=== PATIENT | female | born 1930 | race Caucasian/White ===

== ENCOUNTER 2016-09-30 18:05 | Emergency (ER) | payer OTHER ==
[~2016-09-30] VITALS: Ht 147.3 cm; Wt 40.8 kg
--- NOTE | ~2016-09-30 | EKG ---
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 10/01/16 0818 191 18 Aguilar Petersen MD, FACC /EPI
[~2016-09-30 18:05] MED LIST: ASPIR 8181 M1 PO; NOHOMEMEDICATIONS; PENICILLIN V P500 MG PO; TOPROL XL25 MG PO; TRINATE TABLET1 TAB PO; VITAMIN B-1100 M1 PO
[2016-09-30 19:42] LABS: ANION GAP 11 mmol/L (7-16); BUN 25 mg/dL (7-18); CALCIUM 8.9 mg/dL (8.5-10.1); CHLORIDE 103 mmol/L (98-107); CO2 26 mmol/L (21-32); CREATININE 0.7 mg/dL (0.6-1.3); GLUCOSE 91 mg/dL (70-99); POTASSIUM 3.6 mmol/L (3.5-5.1); SODIUM 140 mmol/L (136-145)
[2016-09-30 19:45] LABS: ABSOLUTE NEUTROPHILS 2.7 thou/uL (1.4-8.2); BASOPHILS 0.5 % (0.0-2.0); EOSINOPHILS 0.3 % (0.0-3.0); HEMATOCRIT 41.6 % (37.0-47.0); HEMOGLOBIN 13.7 gm/dL (12.0-15.0); LYMPHOCYTES 18.2 % (24.0-44.0); MCH 30.9 pg (26.0-34.0); MCHC 32.8 % (28.0-37.0); MCV 94.2 fL (80.0-100.0); MONOCYTES 6.5 % (1.0-8.0); PLATELET COUNT 206 thou/uL (150-400); POLYS 74.5 % (36.0-66.0); RBC 4.42 mil/uL (4.20-5.00); RDW 13.9 % (10.5-14.5); WBC 3.6 thou/uL (4.0-11.0)
[2016-09-30 19:47] LABS: MANUAL DIFF NO
[2016-09-30 19:51] LABS: ALBUMIN 3.7 g/dL (3.4-5.0); ALKALINE PHOSPHATASE 78 U/L (46-116); SGOT 43 U/L (15-37); SGPT 26 U/L (30-65); TOTAL BILIRUBIN 0.7 mg/dL (<0.1-1.0); TOTAL PROTEIN 7.7 g/dL (6.4-8.2); TROPONIN-I < 0.04 ng/mL (<0.04-0.07)
[2016-09-30 21:17] LABS: URINE BILIRUBIN NEGATIVE (Negative); URINE BLOOD TRACE (Negative); URINE COLOR YELLOW; URINE GLUCOSE-RANDOM* NEGATIVE (Negative); URINE KETONES 1+ (Negative); URINE LEUKOCYTES-REFLEX NEGATIVE (Negative); URINE PROTEIN (DIPSTICK) NEGATIVE (Negative); URINE UROBILINOGEN 0.2 E.U./dl (0.2-1.0)
== END 2016-09-30 21:34 | disposition home or self-care (01) ==
LOC: ER 18:05
PROVIDERS: Emergency Medicine
DX: R41.82 Altered mental status, unspecified (principal); N63 Unspecified lump in breast; F03.90 Unspecified dementia, unspecified severity, without behavioral disturbance, psychotic disturbance, mood disturbance, and anxiety; R41.0 Disorientation, unspecified; F10.99 Alcohol use, unspecified with unspecified alcohol-induced disorder

== ENCOUNTER 2017-02-01 15:57 | Inpatient (IN) | payer OTHER ==
[~2017-02-01] VITALS: Ht 149.9 cm; Wt 34.8 kg
--- NOTE | ~2017-02-01 | HC ---
[facility] [address] CONSULTATION Name: ANTONIO SPARKS Room #: 216-P ADM IN M.R.#: [id number] Admission: 02/01/17 Attend Phys: Aashish Cm MD Discharge: Date of : 30 Report #: [id number] THIS REPORT FOR: //name// CC: [facility] physician/PCP Aashish Cm DATE OF CONSULTATION: 02/02/2017. ATTENDING PHYSICIAN: Dr. Cm. REASON FOR CONSULTATION: Pneumonia. Antibiotic management. HISTORY OF PRESENT ILLNESS: The patient is an 86-year-old [place] woman apparently found by friends, unable to care for herself. She is brought to the Emergency Room where a CT scan of the chest revealed, bilateral pleural effusion and possible pneumonia. She is started on Zosyn. The patient apparently has a diagnosis of dementia, chronic tremors. She is very pleasant person but her ability to provide significant medical information is rather limited. PAST MEDICAL HISTORY: Reviewing old records from 2013, a note is made patient is a diagnosis of previous tuberculosis in 1959. History of head tremors. Has use on alcohol to help with the tremors. DRUG ALLERGIES: None listed. MEDICATIONS: She is on treatment with Zosyn 2.25 grams IV every 6 hours, albuterol inhalation treatments, p.r.n. acetaminophen, p.r.n. ondansetron, furosemide intravenously x 1. SOCIAL HISTORY: See old records and H and P. FAMILY HISTORY: See old records and H and P. REVIEW OF SYSTEMS: Unable to obtain. PHYSICAL EXAMINATION: GENERAL: Chronically, she ill-appearing woman with significant head tremors is very pleasant, but not able to give significant medical information. VITAL SIGNS: Temperature 98, pulse 105-133 a minute, respirations 20, blood pressure 155/97 and O2 saturation 98% on 4 liters oxygen nasal cannula. HEENMT: Head normocephalic, atraumatic. Pupils reactive, arcus cornealis. Mouth: Dry mucous membrane. NECK: Supple. LUNGS: Bibasilar crackles posteriorly. HEART: S1, S2. No gallop or murmur. BREASTS: Deferred. ABDOMEN: Soft, no masses or megaly. [facility] [address] [place] [address] CONSULTATION Name: ANTONIO SPARKS Room #: 216-P [facility] IN M.R.#: [id number] Admission: 02/01/17 Attend Phys: Aashish Cm MD Discharge: Date of : 30 Report #: [id number] PELVIC AND RECTAL: Deferred. EXTREMITIES: No clubbing, cyanosis. NEUROLOGIC: Grossly within normal limits. With that she has significant head tremors and been present previously. LABORATORY DATA: Sodium 141, potassium 3.8, BUN 17, creatinine 1, glucose 189. SGOT 43, lipase 70, albumin 3.3 g/dL. WBC 9300, hemoglobin 12.3 g/dL, platelets 200,000. The urinalysis revealed 1+ protein, 1+ blood. The microscopic exam essentially negative. MICROBIOLOGY DATA: Urine culture and blood cultures were order as well as sputum culture and all of toes are pending. RADIOLOGY EVALUATION: Breast ultrasound of the right breast [address] scan of abdomen and pelvis revealed large pleural effusion, compressive atelectasis, an infiltrate left lingula, possibly loculated pleural effusion, empyema not be excluding, liver cyst, gallstones in the gallbladder without cholecystitis, atrophic pancreatitis, colonic wall thickening of distal colon, possible colitis, some pericolonic stranding and fibroid the uterus. ASSESSMENT: 1. Bilateral pleural effusions, question loculated empyema -- pneumonia. 2. Colonic wall thickening, rule out colitis. 3. Fibroid. 4. Right breast mass. 5. Dementia. 6. Head tremors. 7. Mild hypoalbuminemia. SUGGESTIONS: I supposed pulmonary services was consulted. If not, I recommend doing so. For the time being, must continue coverage with Zosyn for possible aspiration pneumonia. We will obtain stool for C. difficile toxin. Dr. Cm, thank you for requesting my suggestions in the care of your patient. <ELECTRONICALLY SIGNED> By: Petr Farrar MD 02/03/17 0702 0646 0805 Petr Farrar MD /nt
--- NOTE | ~2017-02-01 | 2DMMODE ---
[facility] [address] [place] [address] 2 D/M-MODE ECHOCARDIOGRAM Name: ANTONIO SPARKS Room #: 216-P [facility] IN ..#: [id number] Admission: 02/01/17 Attend Phys: Divine Calvo Discharge: Date of : 30 Date of Service: 02/02/17 [facility] Report #: [id number] THIS REPORT FOR: //name// APPROVED REPORT Study performed: 02/02/2017 10:27:18 EXAM: Comprehensive 2D, Doppler, and color-flow Echocardiogram Patient Location: In-Patient Room #: 216 Status: on-call Other Information Study Quality: Excellent Indications Congestive Heart Failure 2D Dimensions LVEF(%): 14.68 (>50%) IVSd: 12.62 (7-11mm) LVOT Diam: 19.00 (18-24mm) LVDd: 41.72 mm PWd: 12.09 (7-11mm) Ascending Ao: 21.75 (22-36mm) LVDs: 39.02 (25-40mm) Aortic Root: 24.70 mm Munoz's LVEF: 14.68 % Volumes Left Atrial Volume (Systole) Single Plane 4CH: 33.32 mL Single Plane 2CH: 49.66 mL LA ESV Index: 39.00 mL/m2 Aortic Valve AoV Peak Chong.: 1.26 m/s AO Peak Gr.: 6.76 mmHg LVOT Max P.79 mmHg LVOT Max V: 0.83 m/s ALLI Vmax: 1.74 cm2 AI Vmax: 4.54 m/s AI Emmet: 2.75 m/s2 AI PHT: 485.69 ms Mitral Valve E/A Ratio: 3.6 MV Decel. Time: 114.29 ms MV E Max Chong.: 1.16 m/s [facility] [place] [address] 2 D/M-MODE ECHOCARDIOGRAM Name: ANTONIO SPARKS Room #: 216-P [facility] IN M.R.#: [id number] Admission: 02/01/17 Attend Phys: Divine Calvo Discharge: Date of : 30 Date of Service: 02/02/17 [facility] Report #: [id number] MV A Chong.: 0.32 m/s MV PHT: 33.14 ms Pulmonary Valve PV Peak Chong.: 0.60 m/s PV Peak Gr.: 1.43 mmHg Tricuspid Valve TR Peak Chong.: 3.14 m/s RAP Estimate: 10.00 mmHg TR Peak Gr.: 39.35 mmHg PA Pressure: 32.00 mmHg Left Ventricle The left ventricle is normal size. Global LV dysfunction Mild concentric left ventricular hypertrophy. Left ventricular systolic function is moderately decreased. EF 30-35% Right Ventricle The right ventricle is normal size. The right ventricular systolic function is normal. Atria Left atrium is mildly dilated. The right atrium size is normal. Aortic Valve The aortic valve is trileaflet, mildly calcified. Moderate aortic regurgitation. There is no aortic valvular stenosis. Mitral Valve The mitral valve is normal in structure. Moderate mitral regurgitation. No evidence of mitral valve stenosis. Tricuspid Valve The tricuspid valve is normal in structure. Trace tricuspid regurgitation. Pulmonic Valve The pulmonary valve is normal in structure. There is no pulmonic valvular regurgitation. Great Vessels The aortic root is normal in size. IVC is normal in size and collapses <50% with inspiration. Pericardium Trace pericardial effusion. [facility] [address] [place] [address] 2 D/M-MODE ECHOCARDIOGRAM Name: ANTONIO SPARKS Room #: 216-P ADM IN .R.#: [id number] Admission: 02/01/17 Attend Phys: Divine Calvo Discharge: Date of : 30 Date of Service: 02/02/17 1200 Report #: [id number] <Conclusion> Left ventricular systolic function is moderate to severely decreased. EF 30-35% Both atria are dilated. The aortic valve is trileaflet, mildly calcified. No stenosos, MIld-moderate aortic regurgitation. The mitral valve is normal in structure. Moderate mitral regurgitation. Pulmonary artery pressure of 45mmHg Trace pericardial effusion. Pleural effusion <ELECTRONICALLY SIGNED> By: Aguilar Petersen MD, FAC 02/02/17 1200 1200 99 Aguilar Petersen MD, [facility] /INF
--- NOTE | ~2017-02-01 | HC ---
[facility] [place] [address] CONSULTATION Name: ANTONIO SPARKS Room #: 216-P [facility] IN M.R.#: [id number] Admission: 02/01/17 Attend Phys: Aashish Cm MD Discharge: Date of : 30 Report #: [id number] THIS REPORT FOR: //name// CC: [facility] physician/PCP Aashish Cm DATE OF SERVICE: 02/02/2017 PRIMARY CARE PHYSICIAN: Unknown. REFERRING PHYSICIAN: Dr. Cm. REASON FOR REFERRAL: Pneumonia. HISTORY OF PRESENT ILLNESS: The patient is an 86-year-old female who was admitted with pneumonia. A pulmonary consultation was requested. The patient is a poor historian. There are no family members available. According to the ER record, the patient was brought to the Emergency Room by a friend who found the patient with trouble with vomiting and nausea for the past 2-3 days. The patient reportedly had been able to eat prior to that. Currently, she does not appear in distress. She denies any dyspnea or chest pain, though again the patient is a poor historian. There is a questionable history of dementia. I am not able to locate portable chest x-ray. PAST MEDICAL HISTORY: Remarkable for dementia, tremors, otherwise incomplete. ALLERGIES: None to medications. HOME MEDICATIONS: Unknown. FAMILY HISTORY AND SOCIAL HISTORY: Unknown. REVIEW OF SYSTEMS: As mentioned above is quite limited due to presumed dementia. PHYSICAL EXAMINATION: GENERAL: She is awake, does not appear to be in distress. VITAL SIGNS: Temperature is 98.9 degrees Fahrenheit, pulse is 94, respiratory rate is 16, blood pressure 131/73 mmHg, saturation 98%. HEENT: Normocephalic, atraumatic. NECK: Supple, without any lymphadenopathy or thyromegaly. CHEST: Breath sounds are fair due to poor effort. No obvious wheezes or [facility] [address] [place] [address] CONSULTATION Name: ANTONIO SPARKS Room #: 216-P [facility] IN [facility].#: [id number] Admission: 02/01/17 Attend Phys: Aashish Cm MD Discharge: Date of : 30 Report #: [id number] crackles. CARDIOVASCULAR: Normal S1, S2. No murmurs or gallop. There is no JVD. There is no carotid bruit. Pulses are 2+/4+ bilaterally. ABDOMEN: Soft, nontender, no organomegaly or masses felt. GENITOURINARY: Deferred. RECTAL: Deferred. EXTREMITIES: There is no edema, cyanosis or clubbing. LABORATORY DATA: CT of the abdomen and pelvis shows moderate bilateral pleural effusion, bibasilar infiltrates involving the lingula. Pleural effusion has some suggestion of loculation, diffuse colonic wall thickening suggestive of colitis. Lactic acid is 2.9. BNP is 15,600. Echocardiogram showed ejection fraction of 30-35%, left ventricular systolic functions felt to be moderate to severely decreased. Pulmonary artery pressure measured 45 mmHg. Electrolytes unremarkable. Liver function test is mildly abnormal, WBC 8000, hemoglobin is 12.4 without evidence of bandemia. Albumin 3.4. IMPRESSION: 1. Apparent nausea and vomiting in this 86-year-old female. CT abdomen and pelvis suggest colonic wall thickening suggestive of possible colitis. 2. Bilateral pleural effusion, some of this appears to be loculated, chronic with minimal infiltrates. Pneumonia is felt to be less likely, though possible. 3. Cardiomyopathy with reduced ejection fraction. 4. Right breast mass. 5. Dementia. RECOMMENDATION AND DISCUSSION: In terms of the pleural fluid, we will proceed with a formal CT chest for complete evaluation. If the patient indeed does have loculated pleural effusion, given advanced age and dementia, I would strongly recommend conservative management. I do not think she will be a good surgical candidate. I think it is reasonable to continue antibiotics to treat for presumed pneumonia. Given her recent nausea and vomiting, will need to consider aspiration pneumonia. You will be helpful to obtain all records if possible and to contact family members if available. Thank you for the consultation. <ELECTRONICALLY SIGNED> By: Sven Infante MD 02/03/17 1632 1554 Sven Infante MD /nt
--- NOTE | ~2017-02-01 | EKG ---
[address] [place] [address] ELECTROCARDIOGRAM REPORT Name: ANTONIO SPARKS Room #: 216-P ADM IN M.R.#: [id number] Admission: 02/01/17 Attend Phys: Aashish Cm MD Discharge: Date of : 30 Report #: [id number] THIS REPORT FOR: //name// [facility] Test Date: 2017-02-03 Test Time: 07:14:25 Pat Name: ANTONIO SPARKS Department: Room: 216 P Gender: F Wheat Buyer: ADRIAN : 1930 Requested By: Jorge Gan Order Number: [id number] MD: Aguilar Petersen Measurements Intervals [place] Rate: 71 P: 79 MT: 190 QRS: -92 QRSD: 120 T: 255 QT: 471 QTc: 512 Interpretive Statements Sinus rhythm Atrial premature complex Probable anterior infarct, age indeterminate Compared to ECG 09/30/2016 19:19:04 Atrial premature complex(es) now present Right bundle branch block no longer present Electronically Signed On 02-03-2017 14:07:44 CDT by Aguilar Petersen [email or web address] <ELECTRONICALLY SIGNED> By: Aguilar Petersen MD, [facility] 02/03/17 1407 0714 0714 Aguilar Petersen MD, [facility] /EPI
--- NOTE | ~2017-02-01 | CNG ---
[facility] [address] CYTO-NONGYN REPORT PROCEDURE Name: ANTONIO WARD Room #: 216-P ADM IN M.R.#: [id number] Admission: 02/01/17 Date of : 30 Discharge: Report #: [id number] Path Case #: [id number] CYTOPATHOLOGY REPORT COLLECTION DATE: 02/05/2017 RECEIVED DATE: 02/05/2017 SUBMITTING PHYS: Dr. Toi Zendejas OTHER PHYS: CLINICAL HISTORY: Pneumonia/Sepsis/SOB SPECIMEN(S) RECEIVED: A.Pleural fluid * * * * * * * * * * * * FINAL DIAGNOSIS: A. Pleural fluid: - No malignant cells identified. Scattered reactive mesothelial cells and inflammation identified. PATHOLOGIST: Mina Wright M.D. REPORT ELECTRONICALLY SIGNED BY: Mina Wright M.D. DATE/TIME: 02/06/2017 11:21 * * * * * * * * * * * * GROSS PATHOLOGY: A. Pleural fluid: The specimen is submitted unfixed, labeled "Antonio Ward". Received by the Cytology Department is 15 mL of yellow fluid. One ThinPrep slide and a cell block were prepared. (KG 02/05/17) DYE MACHINE TENDER(S): BEATRIZ Campbell(ASCP) INITIAL CPT CODE(S): A; 11861, 95878 [facility] [address] [facility] [address] [place] [address] Technical services performed by [facility] at [address] [place] [address]., [address], [place] [address]. [facility] [address] [place] [address], [address] [place] [address] PHONE: [phone] [facility] [address] [place] [address] CYTO-NONGYN REPORT PROCEDURE Name: ANTONIO WARD Room #: 216-P ADM IN M.R.#: [id number] Admission: 02/01/17 Date of : 30 Discharge: Report #: [id number] Path Case #: [id number] DIRECTOR: Alexis Weiss M.D. * * * END OF REPORT * * *
--- NOTE | ~2017-02-01 | HC ---
[facility] [place] [address] CONSULTATION Name: ANTONIO SPARKS Room #: 216-P [facility] IN M.R.#: [id number] Admission: 02/01/17 Attend Phys: Aashish Cm MD Discharge: 02/06/17 Date of : 30 Report #: [id number] THIS REPORT FOR: //name// CC: [facility] physician/PCP Aashish Cm CARDIOLOGY CONSULT HISTORY OF PRESENT ILLNESS: The patient 86-year-old female, very small. I am asked to see for the potential of heart failure exacerbation, looks like she was admitted with possible sepsis syndrome, although that apparently was ruled out, but although found to have what we believe to be infiltrate and atelectasis in the lower lobes, in the right middle lobe region, some loculated pleural fluid also was noted on the CAT scan. Treated with IV antibiotics and appears to be in sinus tachycardia which may be an appropriate physiologic response here. I do not have an EKG, but I will certainly obtain one. She denies cardiac history. I believe there is some language issue and also a mild underlying dementia here, so difficult to get a reliable history. LABORATORY DATA: Potassium 4.3, creatinine 2.9, BUN 17. Liver function tests are normal. Troponin is negative. Lactate is 2.9, proBNP is 15,654. SOCIAL HISTORY: She apparently lives alone, although I find this somewhat difficult to believe. She does brought by a neighbor or friend for the nausea and vomiting and precipitated this admission and apparently also has remained extremely tremulous since her admission. PAST MEDICAL HISTORY: Difficult to obtain some dementia and tremors. There is also a right breast mass and the CT scan reveals diffuse colonic thickening secondary possibly to C. diff, cholelithiasis and enlargement of the right ovary, some mild edema and anasarca. SOCIAL HISTORY: She apparently lives independently, I cannot obtain the alcohol or tobacco information, but she has apparently a son, but she will allow no one else in the room. He is not present. REVIEW OF SYSTEMS: Essentially obtainable. DIAGNOSTIC DATA: Echo preliminarily at bedside reveals some moderate LV dysfunction, possibly anterior septal infarct, old; EF 30-35% with mild to moderate mitral and aortic insufficiency, formal report, we will follow. PHYSICAL EXAMINATION: VITAL SIGNS: Blood pressure 140/84, pulse 90-100 and regular. HEENT: Eyes reveal xanthelasmas. Pharynx is clear. NECK: Shows preserved upstrokes without JVD or bruits. [facility] [address] [place] [address] CONSULTATION Name: ANTONIO SPARKS Room #: 216-P [facility] IN M.R.#: [id number] Admission: 02/01/17 Attend Phys: Aashish Cm MD Discharge: 02/06/17 Date of : 30 Report #: [id number] LUNGS: Clear anteriorly, diminished in the left base. Few fine crackles toward the bases. ABDOMEN: Slightly protuberant, nontender. EXTREMITIES: Reveal trace to 1+ edema bilaterally. NEUROLOGIC: Nonfocal. SKIN: Warm and dry without xanthoma or ulcer. MUSCULOSKELETAL: Generalized arthritic changes were noted. ASSESSMENT: 1. Acute systolic heart failure, on chronic systolic failure. 2. Pneumonia, underlying heart failure, concomitant issue. 3. Tachycardia, presumably a physiologic response. 4. Moderate with ischemic cardiomyopathy, suspected due to regional wall motion abnormality, EF 30-35% range. RECOMMENDATIONS AND PLAN: We will increase IV Lasix to 40 b.i.d. We will add low dose CORDELIA, 5 mg of lisinopril and initiate Coreg 12.5 b.i.d., both for the LV dysfunction and to help control heart rate. She is hypertensive, so she will be able to tolerate this with the pressures running 140s to 160. We will follow with you. Again, I am not hearing any evidence of any chest pain or anginal complaints here, we would not recommend further cardiac testing, but we will follow. <ELECTRONICALLY SIGNED> By: Jorge Gan MD, FACC 02/11/17 1544 1139 1948 Jorge Gan MD, FACC /nt
--- NOTE | ~2017-02-01 | EKG ---
[place] [address] [address] [facility] [place] [address] ELECTROCARDIOGRAM REPORT Name: ANTONIO SPARKS Room #: 216- DIS IN M.R.#: [id number] Admission: 02/01/17 Attend Phys: Aashish Cm MD Discharge: 02/06/17 Date of : 30 Report #: [id number] THIS REPORT FOR: //name// [facility] Test Date: 2017-02-06 Test Time: 14:45:02 Pat Name: ANTONIO SPARKS Department: Room: 216 Gender: F Stove Bottom Worker: Divine BOYER : 1930 Requested By: Aashish Cm Order Number: [id number] MD: Aguilar Petersen Measurements Intervals [place] Rate: 71 P: 78 CT: 166 QRS: -96 QRSD: 140 T: 48 QT: 456 QTc: 496 Interpretive Statements Sinus rhythm Probable left atrial enlargement RBBB and LAFB Abnormal T, consider ischemia, lateral leads Baseline wander in lead(s) II,III,aVF Compared to ECG 02/03/2017 07:14:25 Left anterior fascicular block now present Right bundle-branch block now present T-wave abnormality more pronounced Atrial premature complex(es) no longer present Electronically Signed On 02-07-2017 7:19:08 CDT by Aguilar Petersen [email or web address] <ELECTRONICALLY SIGNED> By: Aguilar Petersen MD, [facility] 02/07/17 0719 1445 1445 Aguilar Petersen MD, [facility] /EPI
--- NOTE | ~2017-02-01 | HC ---
[facility] [place] [address] CONSULTATION Name: ANTONIO SPARKS Room #: 216-P ADM IN M.R.#: [id number] Admission: 02/01/17 Attend Phys: Aashish Cm MD Discharge: Date of : 30 Report #: [id number] THIS REPORT FOR: //name// CC: [facility] physician/PCP Aashish Cm DATE OF SERVICE: 02/04/2017 HISTORY OF PRESENT ILLNESS: The patient is an 86-year-old female who was admitted with nausea, vomiting, was noted to have pulmonary infiltrates. Workup revealed bilateral pneumonia with congestive heart failure and colitis with ileus. Infectious Disease has been involved as well as Cardiology. Her acute respiratory failure has improved. Pneumonia is improving as well as her CHF. She does have moderate ischemic cardiomyopathy. She also is noted to have a right breast mass with recommendations for outpatient followup warranted. She has medical complexity with generalized debilitation. We are seeing her in rehabilitation medicine consultation. PAST MEDICAL HISTORY: Includes essential tremor. There is a history of some dementia apparently. MEDICATIONS: Please see her full medication listing. HABITS: No history of tobacco or alcohol abuse. SOCIAL HISTORY: She is an original [place] national, apparently an [place] during World War II and took his name. He has now passed. She lives by herself in a house, 5-6 steps in. She does not use a cane, but notes that she will use a long walking stick to help get around. She does have an involved son that checks in on her. REVIEW OF SYSTEMS: Did not offer any current complaints of chest pain, shortness of breath or abdominal discomfort. PHYSICAL EXAMINATION: GENERAL: She is a pleasant, small statured, thin, oriental female in no obvious distress. She does reasonably well with her broken Panamanian and follows commands without difficulty. She is pleasant. VITAL SIGNS: Temperature is 98.3, pulse , respirations 16, blood pressure 103/61. HEENT: Facies appeared symmetric. EXTREMITIES: She has functional range of motion of both upper extremities, strength is grade 4-/5. She does have an essential tremor, most noted with her head. Strength of the upper extremities is a grade 4- to 3+/5. In her lower extremities, no focal calf swelling, functional range of motion with strength grade 3+ to 4-/5. DTRs are trace to 1. No focal calf swelling. [facility] [address] [place] [address] CONSULTATION Name: ANTONIO SPARKS Room #: 216-P [facility] IN M.R.#: [id number] Admission: 02/01/17 Attend Phys: Aashish Cm MD Discharge: Date of : 30 Report #: [id number] ASSESSMENT: An 86-year-old female with the following problem list: 1. Medical complexity with generalized debilitation. 2. Acute respiratory failure that has improved. 3. Pneumonia. 4. Acute systolic congestive heart failure. 5. Colitis with ileus. 6. Moderate ischemic cardiomyopathy. 7. Right breast mass that warrants outpatient followup. 8. Apparent history of underlying dementia. 9. History of tuberculosis in 1959, which was treated. PLAN: Physical therapy and occupational therapy orders are entered. We will see how she does with her functional mobility and ADLs. We are assessing her potential candidacy for an acute in-hospital inpatient rehabilitation stay. We will be glad to follow along with you regarding her rehab therapy needs. By: [id number] Ben Hodgson MD /nt
[2017-02-01 16:01] VITALS: BP 184/105
[2017-02-01 16:33] LABS: ABSOLUTE NEUTROPHILS 5.1 thou/uL (1.4-8.2); BASOPHILS 0.4 % (0.0-2.0); EOSINOPHILS 0.1 % (0.0-3.0); HEMATOCRIT 39.2 % (37.0-47.0); HEMOGLOBIN 12.9 gm/dL (12.0-15.0); LYMPHOCYTES 15.7 % (24.0-44.0); MCH 30.8 pg (26.0-34.0); MCHC 32.8 g/dL (28.0-37.0); MCV 93.8 fL (80.0-100.0); MONOCYTES 4.2 % (1.0-8.0); PLATELET COUNT 258 thou/uL (150-400); POLYS 79.6 % (36.0-66.0); RBC 4.18 mil/uL (4.20-5.00); RDW 14.7 % (10.5-14.5); WBC 6.4 thou/uL (4.0-11.0)
[2017-02-01 16:38] LABS: MANUAL DIFF NO
[2017-02-01 16:46] LABS: CALCIUM 8.6 mg/dL (8.5-10.1); POTASSIUM 3.8 mmol/L (3.5-5.1)
[2017-02-01 16:50] LABS: ALBUMIN 3.3 g/dL (3.4-5.0); DIRECT BILIRUBIN 0.2 mg/dL (<0.1-0.3); TOTAL BILIRUBIN 0.9 mg/dL (<0.1-1.0); TOTAL PROTEIN 7.1 g/dL (6.4-8.2)
[2017-02-01 19:51] VITALS: BP 163/95
[2017-02-01 20:35] VITALS: BP 152/87
[2017-02-02 02:49] LABS: HEMATOCRIT 37.9 % (37.0-47.0); HEMOGLOBIN 12.3 gm/dL (12.0-15.0); MCH 30.9 pg (26.0-34.0); MCHC 32.4 g/dL (28.0-37.0); MCV 95.2 fL (80.0-100.0); RBC 3.98 mil/uL (4.20-5.00); RDW 14.9 % (10.5-14.5); WBC 9.3 thou/uL (4.0-11.0)
[2017-02-02 03:46] VITALS: BP 155/97
[2017-02-02 04:46] LABS: URINE BILIRUBIN NEGATIVE (Negative); URINE BLOOD 1+ (Negative); URINE COLOR YELLOW; URINE GLUCOSE-RANDOM* NEGATIVE (Negative); URINE KETONES NEGATIVE (Negative); URINE NITRITE NEGATIVE (Negative); URINE PROTEIN (DIPSTICK) 1+ (Negative); URINE SPECIFIC GRAVITY 1.025 (1.003-1.035); URINE UROBILINOGEN 0.2 E.U./dl (0.2-1.0)
[2017-02-02 04:57] LABS: SQUAMOUS None Seen /LPF (0-3)
[2017-02-02 04:58] LABS: BACTERIA None Seen /HPF (None Seen); CASTS None Seen /LPF (None Seen); CRYSTALS None Seen /LPF (None Seen); URINE RBC 0-2 Rare /HPF (0-2); URINE WBC None Seen /HPF (0-5)
[2017-02-02 06:40] LABS: ALBUMIN 3.4 g/dL (3.4-5.0); CALCIUM 8.1 mg/dL (8.5-10.1); CREATININE 0.9 mg/dL (0.6-1.0); POTASSIUM 4.3 mmol/L (3.5-5.1); TOTAL BILIRUBIN 1.1 mg/dL (<0.1-1.0); TOTAL PROTEIN 7.5 g/dL (6.4-8.2); TROPONIN-I 0.05 ng/mL (<0.04-0.07)
[2017-02-02 07:31] VITALS: BP 144/84
[2017-02-02 11:20] VITALS: BP 131/73
[2017-02-02 11:24] LABS: HEMATOCRIT 36.9 % (37.0-47.0); HEMOGLOBIN 12.4 gm/dL (12.0-15.0); MCH 31.3 pg (26.0-34.0); MCHC 33.7 g/dL (28.0-37.0); MCV 92.9 fL (80.0-100.0); RBC 3.97 mil/uL (4.20-5.00); RDW 14.6 % (10.5-14.5)
[2017-02-02 11:43] LABS: CALCIUM 7.9 mg/dL (8.5-10.1); MAGNESIUM 1.8 mg/dL (1.8-2.4); POTASSIUM 3.4 mmol/L (3.5-5.1); TROPONIN-I 0.06 ng/mL (<0.04-0.07)
[2017-02-02 15:48] VITALS: BP 108/64
[2017-02-02 19:27] VITALS: BP 96/53
[2017-02-03] VITALS (7 sets, daily range): BP systolic 82–113; BP diastolic 43–61
[2017-02-03 03:10] LABS: HEMATOCRIT 33.4 % (37.0-47.0); HEMOGLOBIN 11.4 gm/dL (12.0-15.0); MCH 31.2 pg (26.0-34.0); MCHC 34.1 g/dL (28.0-37.0); MCV 91.4 fL (80.0-100.0); RBC 3.65 mil/uL (4.20-5.00); RDW 14.1 % (10.5-14.5); WBC 7.6 thou/uL (4.0-11.0)
[2017-02-03 03:20] LABS: CALCIUM 7.5 mg/dL (8.5-10.1); MAGNESIUM 1.6 mg/dL (1.8-2.4)
[2017-02-03 03:25] LABS: POTASSIUM 2.7 mmol/L (3.5-5.1)
[2017-02-03 16:42] LABS: POTASSIUM 3.1 mmol/L (3.5-5.1)
[2017-02-03 17:16] LABS: MAGNESIUM 1.7 mg/dL (1.8-2.4)
[2017-02-03 22:31] LABS: MAGNESIUM 1.8 mg/dL (1.8-2.4); POTASSIUM 3.1 mmol/L (3.5-5.1)
[2017-02-04 03:41] LABS: HEMATOCRIT 35.9 % (37.0-47.0); HEMOGLOBIN 12.1 gm/dL (12.0-15.0); MCH 31.3 pg (26.0-34.0); MCHC 33.6 g/dL (28.0-37.0); RBC 3.87 mil/uL (4.20-5.00); RDW 14.3 % (10.5-14.5); WBC 5.4 thou/uL (4.0-11.0)
[2017-02-04 03:50] LABS: MAGNESIUM 2.1 mg/dL (1.8-2.4); POTASSIUM 3.7 mmol/L (3.5-5.1)
[2017-02-04 04:25] VITALS: BP 100/56
[2017-02-04 08:05] VITALS: BP 98/61
[2017-02-04 08:20] VITALS: BP 103/61
[2017-02-04 12:25] VITALS: BP 92/51
[2017-02-04 16:34] VITALS: BP 95/56
[2017-02-04 19:39] VITALS: BP 88/51
[2017-02-05 03:18] VITALS: BP 119/70
[2017-02-05 03:43] LABS: HEMATOCRIT 36.3 % (37.0-47.0); HEMOGLOBIN 12.1 gm/dL (12.0-15.0); MCH 31.1 pg (26.0-34.0); MCHC 33.4 g/dL (28.0-37.0); MCV 93.2 fL (80.0-100.0); RBC 3.9 mil/uL (4.20-5.00); RDW 14.1 % (10.5-14.5); WBC 4.6 thou/uL (4.0-11.0)
[2017-02-05 03:52] LABS: CALCIUM 8.5 mg/dL (8.5-10.1); CREATININE 0.9 mg/dL (0.6-1.0); MAGNESIUM 2.3 mg/dL (1.8-2.4); POTASSIUM 3.5 mmol/L (3.5-5.1)
[2017-02-05 03:55] LABS: PROTIME 10.6 Seconds (9.3-11.4)
[2017-02-05 07:29] VITALS: BP 109/60
[2017-02-05 11:24] VITALS: BP 101/53
[2017-02-05 14:25] LABS: BF NUCLEATED CELLS 783; BF RBC 2257
[2017-02-05 14:26] LABS: CLARITY HAZY; COLOR YELLOW; TOTAL VOLUME 50 mL
[2017-02-05 15:39] VITALS: BP 94/54
[2017-02-05 16:38] LABS: MANUAL DIFF YES
[2017-02-05 16:42] LABS: BF MACROPHAGE 21; BF NEUTROPHILS 2
[2017-02-05 19:55] VITALS: BP 103/64
[2017-02-06 04:16] LABS: CALCIUM 8.7 mg/dL (8.5-10.1); CREATININE 0.9 mg/dL (0.6-1.0); MAGNESIUM 2.4 mg/dL (1.8-2.4); POTASSIUM 3.5 mmol/L (3.5-5.1)
[2017-02-06 04:18] LABS: HEMATOCRIT 39.5 % (37.0-47.0); HEMOGLOBIN 13.3 gm/dL (12.0-15.0); MCHC 33.6 g/dL (28.0-37.0); RBC 4.29 mil/uL (4.20-5.00); RDW 14.7 % (10.5-14.5); WBC 4.2 thou/uL (4.0-11.0)
[2017-02-06 04:44] VITALS: BP 120/67
[2017-02-06 08:08] VITALS: BP 117/72
[2017-02-06] MEDS ORDERED: CEFDINIR300 MG PO (10:33)
[2017-02-06] MEDS ORDERED: FLAGYL 250 MG250 MG PO (10:33)
[2017-02-06] MEDS ORDERED: LISINOPRIL5 MG PO (10:33)
[2017-02-06] MEDS ORDERED: ALBUTEROL2.5 MG/0.5 INH (10:33)
[2017-02-06] MEDS ORDERED: CARVEDILOL6.25 MG PO (10:33)
[2017-02-06] MEDS ORDERED: ACETAMINOPHEN325 M1 PO (10:33)
[2017-02-06] MEDS ORDERED: CARBIDOPA-LEVO1 EA11 PO (10:33)
[2017-02-06 12:10] VITALS: BP 88/53
[2017-02-06 14:21] VITALS: BP 81/54
[2017-02-08 09:09] LABS: BODY FLUID ALBUMIN 1.7 g/dL (()); BODY FLUID AMYLASE 109 U/L (()); BODY FLUID GLUCOSE 113 mg/dL (()); BODY FLUID LDH 161 IU/L (()); BODY FLUID PROTEIN 2.7 g/dL (())
== END 2017-02-06 15:28 | DRG 177 ==
LOC: ER 15:57 → EROBS 17:42 → 2N 17:42
PROVIDERS: Emergency Medicine; Family Medicine; Internal Medicine; Internal Medicine Pulmonary Disease; Nurse Practitioner Family
PROC: 0W993ZZ Drainage of Right Pleural Cavity, Percutaneous Approach (ICD-10-PCS; principal; 2017-02-05)
DX: J69.0 Pneumonitis due to inhalation of food and vomit (principal); I50.23 Acute on chronic systolic (congestive) heart failure; J96.01 Acute respiratory failure with hypoxia; K56.7 Ileus, unspecified; J90 Pleural effusion, not elsewhere classified; K80.20 Calculus of gallbladder without cholecystitis without obstruction; K52.9 Noninfective gastroenteritis and colitis, unspecified; D21.9 Benign neoplasm of connective and other soft tissue, unspecified; N63 Unspecified lump in breast; E88.09 Other disorders of plasma-protein metabolism, not elsewhere classified; I25.5 Ischemic cardiomyopathy; E87.6 Hypokalemia; G20 Parkinson's disease; F02.80 Dementia in other diseases classified elsewhere, unspecified severity, without behavioral disturbance, psychotic disturbance, mood disturbance, and anxiety
CPT/HCPCS: 10081

== ENCOUNTER 2017-02-06 11:58 | Inpatient (IN) | payer OTHER ==
[~2017-02-06] VITALS: Ht 149.9 cm; Wt 31.8 kg
--- NOTE | ~2017-02-06 | HC ---
[facility] [place] [address] CONSULTATION Name: ANTONIO SPARKS Room #: 503-P ADM IN M.R.#: [id number] Admission: 02/06/17 Attend Phys: Ben Hodgson MD Discharge: Date of : 30 Report #: [id number] THIS REPORT FOR: //name// CC: Ben Hodgson [facility] physician/PCP DATE OF SERVICE: 02/11/2017 NEUROBEHAVIORAL STATUS EXAM ATTENDING PHYSICIAN: Ben Hodgson M.D. ROLL WINDER: Garrett Gay, PhD CLINICAL PRESENTATION: The patient is an 86-year-old female admitted to the rehabilitation unit at [facility] for comprehensive inpatient rehabilitation program to improve functional mobility and activities of daily living and self-care along mental status secondary to deficits from Parkinson disease. She is currently undergoing Sinemet trial. Her diagnostic assessment includes medical complexity with generalized debilitation, acute respiratory failure, pneumonia, acute systolic congestive heart failure, colitis with ileus, moderate ischemic cardiomyopathy, right breast mass that warrants the patient followup, bilateral pleural effusion, pleural plaques right chest, history of TB in 1959 treated in TB [facility], and colitis. A complete description of her medical condition and history along with medications can be found in her medical record. Neuropsychological consultation was requested to provide assistance in the assessment of cognitive and emotional status and to provide recommendations and services. Prior to this most recent deterioration in her medical condition, she reported to have been living independently in her own home. The patient has one child. The patient apparently has a history of paranoia and excessive alcohol use. She had been living independently prior to this most recent medical event. The patient has difficulty with verbal expression and comprehension. Her background history was likely to be unreliable. I was unable to reach her son at this time. TECHNIQUES UTILIZED: Clinical interview, review of medical records, staff consultation and behavioral observation, subtest and mini mental status exam 2 standard version. EXAMINATION FINDINGS: The patient presents with impaired comprehension and expression. Her symptoms suggest anxiety. She denies subjective depression. She does not report difficulty with sleep or appetite. However, the reliability of her response is of uncertain accuracy. She presents with orientation to year. Perseveration is noted in verbal expression. Memory could not be [facility] [address] [place] [address] CONSULTATION Name: ANTONIO SPARKS Room #: 503-P [facility] IN M.R.#: [id number] Admission: 02/06/17 Attend Phys: Ben Hodgson MD Discharge: Date of : 30 Report #: [id number] assessed. Moderate to severe impairment is suggested. She was unable to read and follow a command. She could follow verbal command, but unable to follow written command. Intermittent inconsistent comprehension is suggested. DIAGNOSTIC IMPRESSION: Major neurocognitive disorder (dementia), unspecified - without behavior disorder - extent to be determined likely in the moderate range. Unspecified anxiety disorder. RECOMMENDATIONS: The patient will require 24-hour care at this time that includes assistance with medical, financial and nutritional management. A followup neuropsychological evaluation is indicated to clarify the severity of cognitive deficits. At this time, auditory comprehension is inconsistent and the verbal expression is not likely reliable, is lacking accuracy in its reliability. Reassurance and support will be of benefit. Her son should be contacted with educational information about the severity of her deficits and the need for close monitoring to maintain safety. Thank you very much for allowing me to provide the consultation on this patient. By: [id number] Garrett Gay, PhD /nt
--- NOTE | ~2017-02-06 | PLAN ---
[facility] [address] REHAB UNIT PLAN OF CARE Name: ANTONIO SPARKS Room #: 503-P ADM IN M.R.#: [id number] Admission: 02/06/17 Attend Phys: Ben Hodgson MD Discharge: Date of : 30 Report #: [id number] THIS REPORT FOR: //name// CC: Ben Hodgson [facility] physician/PCP DATE OF SERVICE: 02/08/2017 The overall plan of care is based on the preadmission screen, post-admission physician evaluation and information garnered from therapy assessments. In physical therapy, the patient has been min assist with sit to stand, mod assist bed to chair. She is ambulating min assist 100 feet without a device. Grooming is max assist, bathing is moderate assistance, upper body dressing is min assist, lower body dressing is max assist. In speech therapy, she is on a mechanical soft nectar thickened liquid diet. 1. Estimated length of stay is probably at least 2 weeks pending progress. 2. Medical prognosis is reasonably good. 3. Anticipated interventions include the interdisciplinary acute inpatient rehabilitation program. PT, OT and speech, rehabilitation nursing assisting regarding medication management, skin care prophylaxis, bowel and bladder issues and nursing education. Case management is involved as well as the multiple retail wireless sales consultant physicians. 4. Anticipated functional outcomes would be for the patient to become modified independent with transfers, mobility and ADLs and improve as far as her diet so that she can return back to the home setting. She is currently ambulating without an assisted device, but needs to improve as far as her independence level and her transfers. 5. Discharge destination is back to the home setting. She lives by herself, but does have an involved son. 6. Expected therapy by discipline includes PT, OT and speech 1 hour per day each 5 days a week throughout the duration of the acute inpatient rehabilitation stay. By: [id number] Ben Hodgson MD /nt
--- NOTE | ~2017-02-06 | H ---
[facility] [place] [address] HISTORY AND PHYSICAL Name: ANTONIO SPARKS Room #: 503-P ADM IN M.R.#: [id number] Admission: 02/06/17 Attend Phys: Ben Hodgson MD Discharge: Date of : 30 Report #: [id number] THIS REPORT FOR: //name// CC: Ben Hodgson [facility] physician/PCP DATE OF SERVICE: 02/06/2017 HISTORY OF PRESENT ILLNESS: The patient is an 86-year-old female originally admitted to [facility] with nausea, vomiting, was noted to have pulmonary infiltrates. Workup revealed bilateral pneumonia with congestive heart failure and colitis with ileus. Infectious Disease was involved as well as Cardiology. Her acute respiratory failure, improved. Pneumonia was improving as well as her CHF. She was noted to have moderate ischemic cardiomyopathy. She had medical complexity with generalized debilitation. She was noted to have significant tremor, was thought to have clinical evidence of Parkinson's disease and has undergone a trial of Sinemet. With her Parkinson's disease Sinemet trial, significant functional mobility and ADL deficits. She has now been admitted for acute in-hospital inpatient rehabilitation. PAST MEDICAL HISTORY: Includes significant tremor. She has a history of some dementia apparently. MEDICATIONS: Please see the full medication listing. HABITS: No history of tobacco or alcohol abuse. 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 He has now passed. She lives by herself in a house, 5-6 steps in. She does not use a cane, but notes that she will use a long walking stick to help get around. She does have an involved son that checks in on her. REVIEW OF SYSTEMS: Did not offer any current complaints of chest pain, shortness of breath, abdominal discomfort. No complaints of headache, no swallowing problems were noted. No changes in bowel or bladder were ordered. She has the prior tremor. No complaints of lower extremity swelling or focal pain. PHYSICAL EXAMINATION: GENERAL: She is a pleasant, small statured, thin, oriental white female in no obvious distress. NEUROLOGIC: She does follow commands without difficulty. She has tremoring most noted over her head, but some involvement of her upper extremities as well. VITAL SIGNS: Temperature 97.7, pulse 80, respirations 18, blood pressure 104/64. [address] [address] HISTORY AND PHYSICAL Name: ANTONIO SPARKS Room #: [facility] IN M.R.#: [id number] Admission: 02/06/17 Attend Phys: Ben Hodgson MD Discharge: Date of : 30 Report #: [id number] HEENT: Benign. Facies are symmetric. CHEST: Sounded clear to auscultation. CARDIOVASCULAR: Regular rate and rhythm. ABDOMEN: Bowel sounds positive, nontender. BREASTS: She is noted to have a breast mass on the right, but I did not examine. She will need to be followed up with this as an outpatient. EXTREMITIES: As far as upper and lower extremity range of motion, this is at a functional level with strength of grade 4- to 4/5. DTRs are trace to 1. She does have a hint of some cogwheeling of both upper extremities at the elbows and wrists. She has been transferring with contact guard assistance and is ambulating a short distance contact guard assistance. ASSESSMENT: An 86-year-old white female with the following problem list: 1. Parkinson's disease. She is currently undergoing a Sinemet trial. 2. Medical complexity with generalized debilitation. 3. Acute respiratory failure that has improved. 4. Pneumonia. 5. Acute systolic congestive heart failure. 6. Colitis with ileus. 7. Moderate ischemic cardiomyopathy. 8. Right breast mass that warrants outpatient followup. 9. Bilateral pleural effusion. 10. Pleural plaques right chest, history of TB in 1959, [facility]. 11. Colitis is better. PLAN: The patient is admitted for acute in-hospital inpatient rehabilitation. From a postadmission physician evaluation perspective, there are no relevant changes since the preadmission screening. Please see the above review of prior and current medical and functional conditions and comorbidities. Please see the patient's prior and current functional status. As far as risk of complications, she has the multiple medical comorbidities as noted above. Initial plan of care involves the interdisciplinary acute inpatient rehabilitation program with the goal of maximizing her functional independence so that she can return back to her prior living situation. Prognosis is reasonably good with estimated length of stay. I would anticipate fairly short as she is improving as far as her mobility. Potential barriers would include her multiple medical comorbidities and decreased functional status. The patient meets diagnostic criteria for an acute in-hospital inpatient rehabilitation stay. She meets medical necessity criteria. She does have the [address] [address] HISTORY AND PHYSICAL Name: ANTONIO SPARKS Room #: 503-P [facility] IN M.R.#: [id number] Admission: 02/06/17 Attend Phys: Ben Hodgson MD Discharge: Date of : 30 Report #: [id number] tolerance for an acute inpatient rehab program and has appropriate discharge goals back to the home setting. By: 0742 [id number] Ben Hodgson MD /nt
[~2017-02-06 11:58] MED LIST changes: +ACETAMINOPHEN325 M1 PO; +ALBUTEROL2.5 MG/0.5 INH; +CARBIDOPA-LEVO1 EA11 PO; +CARVEDILOL6.25 MG PO; +CEFDINIR300 MG PO; +FLAGYL 250 MG250 MG PO; +LISINOPRIL5 MG PO
[2017-02-06 16:00] VITALS: BP 99/61
[2017-02-07 05:30] LABS: HEMATOCRIT 38.8 % (37.0-47.0); HEMOGLOBIN 13.1 gm/dL (12.0-15.0); MCH 31.1 pg (26.0-34.0); MCHC 33.8 g/dL (28.0-37.0); MCV 92.1 fL (80.0-100.0); RBC 4.21 mil/uL (4.20-5.00); RDW 14.4 % (10.5-14.5)
[2017-02-07 05:37] VITALS: BP 104/64
[2017-02-07 06:46] LABS: CALCIUM 8.3 mg/dL (8.5-10.1); CREATININE 0.9 mg/dL (0.6-1.0); MAGNESIUM 2.2 mg/dL (1.8-2.4); POTASSIUM 3.3 mmol/L (3.5-5.1)
[2017-02-07 16:00] VITALS: BP 95/56
[2017-02-08 05:46] VITALS: BP 110/70
[2017-02-08 09:00] VITALS: BP 98/56
[2017-02-08 16:00] VITALS: BP 101/61
[2017-02-09 03:40] VITALS: BP 100/60
[2017-02-09 15:30] VITALS: BP 108/62
[2017-02-10 05:06] VITALS: BP 105/61
[2017-02-10 05:31] LABS: CALCIUM 8.5 mg/dL (8.5-10.1); CREATININE 0.7 mg/dL (0.6-1.0); POTASSIUM 3.4 mmol/L (3.5-5.1)
[2017-02-10 16:00] VITALS: BP 116/61
[2017-02-11 05:25] VITALS: BP 88/58
[2017-02-11 05:47] LABS: HEMATOCRIT 35.5 % (37.0-47.0); MCH 31.3 pg (26.0-34.0); MCHC 33.9 g/dL (28.0-37.0); MCV 92.4 fL (80.0-100.0); PLATELET COUNT 197 thou/uL (150-400); RBC 3.84 mil/uL (4.20-5.00); RDW 14.6 % (10.5-14.5); WBC 3.6 thou/uL (4.0-11.0)
[2017-02-11 05:49] LABS: MANUAL DIFF YES
[2017-02-11 05:54] LABS: CALCIUM 8.4 mg/dL (8.5-10.1); CREATININE 0.8 mg/dL (0.6-1.0); POTASSIUM 3.4 mmol/L (3.5-5.1)
[2017-02-11 08:00] VITALS: BP 82/49
[2017-02-11 08:46] LABS: ABSOLUTE NEUTROPHILS 2.4 thou/uL (1.4-8.2); PLATELET ESTIMATE NORMAL; TOTAL CELL COUNT 100
[2017-02-11 15:30] VITALS: BP 119/70
[2017-02-11 20:46] VITALS: BP 114/67
[2017-02-12 04:15] VITALS: BP 97/64
[2017-02-12 15:30] VITALS: BP 128/72
[2017-02-13 05:25] VITALS: BP 136/79
[2017-02-13 05:25] LABS: ALBUMIN 2.8 g/dL (3.4-5.0); CALCIUM 8.4 mg/dL (8.5-10.1); CREATININE 0.7 mg/dL (0.6-1.0); MAGNESIUM 2.1 mg/dL (1.8-2.4); POTASSIUM 3.7 mmol/L (3.5-5.1); TOTAL BILIRUBIN 0.3 mg/dL (<0.1-1.0); TOTAL PROTEIN 5.8 g/dL (6.4-8.2)
[2017-02-13] MEDS ORDERED: CARVEDILOL6.25 MG PO (07:31)
[2017-02-13] MEDS ORDERED: CARBIDOPA-LEVO1 EA11 PO ×2 (07:31→09:12)
[2017-02-13] MEDS ORDERED: LISINOPRIL5 MG PO (07:31)
[2017-02-13] MEDS ORDERED: COLACE100 MG PO (07:31)
[2017-02-13] MEDS ORDERED: NEXIUM40 MG PO (07:31)
[2017-02-13] MEDS ORDERED: MIRALAX17 GM PO (07:31)
== END 2017-02-13 09:54 | disposition short-term general hospital (02) | DRG 56 ==
PROVIDERS: Internal Medicine Endocrinology, Diabetes & Metabolism; Nurse Practitioner; Physical Medicine & Rehabilitation
PROC: BH00ZZZ Plain Radiography of Right Breast (ICD-10-PCS; principal; 2017-02-11)
DX: G20 Parkinson's disease (principal); J96.00 Acute respiratory failure, unspecified whether with hypoxia or hypercapnia; J18.9 Pneumonia, unspecified organism; I50.23 Acute on chronic systolic (congestive) heart failure; K56.7 Ileus, unspecified; E87.1 Hypo-osmolality and hyponatremia; J90 Pleural effusion, not elsewhere classified; R53.81 Other malaise; K52.9 Noninfective gastroenteritis and colitis, unspecified; I25.5 Ischemic cardiomyopathy; F01.50 Vascular dementia, unspecified severity, without behavioral disturbance, psychotic disturbance, mood disturbance, and anxiety; F41.9 Anxiety disorder, unspecified; N63 Unspecified lump in breast; K80.80 Other cholelithiasis without obstruction; E87.6 Hypokalemia; I95.9 Hypotension, unspecified; Z79.899 Other long term (current) drug therapy
CPT/HCPCS: 10112

== ENCOUNTER 2017-02-13 09:24 | Observation (INO) | payer OTHER ==
[~2017-02-13] VITALS: Ht 142.2 cm; Wt 31.8 kg
--- NOTE | ~2017-02-13 | S ---
[facility] [place] [address] SURGICAL PATH RPT PROCEDURE Name: ANTONIO SPARKS Room #: 304-P [facility] Lonnie Reilly#: [id number] Admission: 02/13/17 Date of : 30 Discharge: 02/14/17 Report #: [id number] Path Case #: [id number] PATHOLOGY REPORT COLLECTION DATE: 02/13/2017 RECEIVED DATE: 02/13/2017 SUBMITTING PHYS: Dr. Poli Camarena OTHER PHYS: Dr. Pepe Zendejas SPECIMEN(S) RECEIVED: A.Rt breast mass 12:00 SA * * * * * * * * * * * * FINAL DIAGNOSIS: Breast, "right breast mass 12:00": - INFILTRATING LOBULAR CARCINOMA GRADE 1 MEASURING 1.3 CM IN GREATEST DIMENSION. COMMENT: Specimen type: breast biopsy Tumor site: right breast Tumor quantitation: 1.3cm Histologic type: infiltrating lobular carcinoma Histologic grade: 1 Tubules, nuclei and mitoses: 3,1,1 LVSI: no Microcalcifications: none Markers: ordered Block: A1 Predictive breast markers will be ordered in block A1, and an additional report will follow. Dr. Poli Camarena's nurse Luisa Leti was notified of the diagnosis on 02/15/2017 at 4pm. This case was also reviewed by Dr. Terese Lucero. (SHA:; d/t: 02/15/17) PATHOLOGIST: Mina Wright M.D. REPORT ELECTRONICALLY SIGNED BY: Mina Wright M.D. DATE/TIME: 02/15/2017 16:11 * * * * * * * * * * * * GROSS PATHOLOGY: Received in formalin labeled "Antonio Sparks, right breast [facility] [place] [address] SURGICAL PATH RPT PROCEDURE Name: ANTONIO SPARKS Room #: 304-P [facility] Lonnie M.Marlon#: [id number] Admission: 02/13/17 Date of : 30 Discharge: 02/14/17 Report #: [id number] Path Case #: [id number] biopsy," are multiple needle cores of yellow-lee fibrofatty tissue measuring 2.0 x 0.5 x 0.3 cm in aggregate dimensions. The tissue is submitted in its entirety in cassette A1. The cold ischemic time is less than 1 minute. The total formalin fixation time is 35 hours and 19 minutes. (KAH; 02/14/2017) CLINICAL HISTORY: Right breast mass INITIAL CPT CODE(S): A; 15361, 68151(4) Professional services performed by [facility] at [address], [place] [address] Technical services performed by [facility] at [address] [place] [address], [address], [place] [address]. [facility] [address] [address] PHONE: [phone] DIRECTOR: Alexis Weiss M.D. * * * END OF REPORT * * *
[~2017-02-13 09:24] MED LIST changes: +COLACE100 MG PO; +MIRALAX17 GM PO; +NEXIUM40 MG PO
[2017-02-13 10:30] VITALS: BP 92/59
[2017-02-13 15:30] VITALS: BP 104/55
[2017-02-13 19:27] VITALS: BP 108/63
[2017-02-13 23:38] VITALS: BP 108/60
[2017-02-14 03:50] VITALS: BP 120/68
[2017-02-14 06:38] LABS: HEMATOCRIT 34.9 % (37.0-47.0); MCH 32.3 pg (26.0-34.0); MCHC 34.4 g/dL (28.0-37.0); MCV 93.8 fL (80.0-100.0); RBC 3.72 mil/uL (4.20-5.00); RDW 14.7 % (10.5-14.5); WBC 4.2 thou/uL (4.0-11.0)
[2017-02-14 06:58] LABS: ALBUMIN 2.5 g/dL (3.4-5.0); CALCIUM 8.3 mg/dL (8.5-10.1); CREATININE 0.6 mg/dL (0.6-1.0); POTASSIUM 4.2 mmol/L (3.5-5.1); TOTAL BILIRUBIN 0.3 mg/dL (<0.1-1.0)
[2017-02-14 07:22] VITALS: BP 113/71
== END 2017-02-14 15:45 | disposition still patient (30) ==
LOC: 3N 09:24
PROVIDERS: Nurse Practitioner
DX: N63 Unspecified lump in breast (principal); R53.81 Other malaise; E87.6 Hypokalemia; E87.1 Hypo-osmolality and hyponatremia; I95.9 Hypotension, unspecified; G20 Parkinson's disease; F02.80 Dementia in other diseases classified elsewhere, unspecified severity, without behavioral disturbance, psychotic disturbance, mood disturbance, and anxiety; I50.23 Acute on chronic systolic (congestive) heart failure

== ENCOUNTER 2017-02-14 12:30 | Inpatient (IN) | payer OTHER ==
--- NOTE | ~2017-02-14 | H ---
[facility] [place] [address] HISTORY AND PHYSICAL Name: ANTONIO SPARKS Room #: 514-P ADM IN M.R.#: [id number] Admission: 02/14/17 Attend Phys: Ben Hodgson MD Discharge: Date of : 30 Report #: [id number] THIS REPORT FOR: //name// CC: Ben Hodgson [facility] physician/PCP DATE OF SERVICE: 02/14/2017 HISTORY AND PHYSICAL/INTERRUPTED STAY NOTE HISTORY OF PRESENT ILLNESS: The patient is an 86-year-old female originally admitted with bilateral pneumonia with congestive heart failure, colitis and ileus. She was noted to have a moderate ischemic cardiomyopathy. She also had significant tremor and was thought to have clinical evidence of Parkinson's disease and was started on a trial of Sinemet. She was noted to have significant functional mobility and ADL deficits as well as cognitive concerns and was admitted for acute in-hospital inpatient rehabilitation. Please see the full admission note dictation. While on rehabilitation her previously noted breast mass was evaluated by Surgery and the plan was to transfer of for interrupted stay to undergo a breast biopsy. This was accomplished for the right breast mass and she has now been readmitted to the acute inpatient rehabilitation vickers. This is the interrupted stay note. PAST MEDICAL HISTORY, FAMILY HISTORY, SOCIAL HISTORY: Please see the prior dictation. MEDICATIONS: Please see the current medication listing. PHYSICAL EXAMINATION: VITAL SIGNS: Temperature 98.1, pulse 93, respirations 18, blood pressure 108/72. No specific pain complaints. Right breast Band-Aid intact. CHEST: Sounded clear with cardiac exam regular rate and rhythm. ABDOMEN: Bowel sounds positive. GENITOURINARY AND RECTAL: Deferred. No focal calf swelling. ASSESSMENT: 1. Parkinson's disease, on Sinemet. 2. Medical complexity with generalized debilitation. 3. Right breast mass, status post biopsy. 4. Acute respiratory failure that has improved. 5. Pneumonia. 6. Acute systolic congestive heart failure. 7. Colitis with ileus. 8. Moderate ischemic cardiomyopathy. [facility] [address] [place] [address] HISTORY AND PHYSICAL Name: ANTONIO SPARKS Room #: 514-P [facility] IN .R.#: [id number] Admission: 02/14/17 Attend Phys: Ben Hodgson MD Discharge: Date of : 30 Report #: [id number] 9. Bilateral pleural effusions. PLAN: The patient is readmitted to continue from her interrupted stay with inpatient rehabilitation. Orders have been restarted. Goal is to improve her strength functional mobility and ADL, independence as well as cognition to try to achieve a level where she can return back to the home setting with involvement of her son. <ELECTRONICALLY SIGNED> By: Ben Hodgson MD 02/19/17 1518 [id number] Ben Hodgson MD /nt
--- NOTE | ~2017-02-14 | HC ---
[facility] [place] [address] CONSULTATION Name: ANTONIO SPARKS Room #: 514-P ADM IN M.R.#: [id number] Admission: 02/14/17 Attend Phys: Ben Hodgson MD Discharge: Date of : 30 Report #: [id number] THIS REPORT FOR: //name// CC: Ben Hodgson [facility] physician/PCP DATE OF SERVICE: 02/15/2017 REFERRING PROVIDER: Ben Hodgson M.D. REASON FOR CONSULTATION: Right breast cancer. HISTORY OF PRESENT ILLNESS: The patient is an 86-year-old female who was originally admitted with bilateral pneumonia and CHF as well as colitis and a resolving ileus, who was found to have a right breast mass. The patient has now since undergone biopsy of that mass, which has returned positive for infiltrating lobular carcinoma. The patient has since been readmitted to the acute inpatient rehabilitative floor where she is resting comfortably and states she has no complaints today. Specifically, she denies fevers, chills, nausea, vomiting or pain. PAST MEDICAL HISTORY: Parkinson's disease, dementia, history of tuberculosis, history of alcohol abuse, CHF, cardiomyopathy, atrial fibrillation, recent colitis, marked tremors, recent pneumonia. CURRENT MEDICATIONS: Tylenol, DuoNeb, Sinemet, carvedilol, Colace, lisinopril, Protonix, and MiraLax. ALLERGIES: No known drug allergies. FAMILY HISTORY: Reviewed and noncontributory. SOCIAL HISTORY: Positive for tobacco and alcohol abuse. Negative for any history of illicit drug use. REVIEW OF SYSTEMS: GENERAL: The patient denies nocturnal fevers or chills. HEENT: No change in vision, change in hearing. NECK: No swelling or difficulty swallowing. HEART: No chest pain or palpitations. LUNGS: No cough or shortness of breath. ABDOMEN: No nausea, no vomiting. GENITOURINARY: No dysuria or hematuria. ENDOCRINE: No polyuria, polydipsia. HEMATOLOGIC: No history of bleeding or easy bruising. EXTREMITIES: No history of weakness or limited range of motion. [facility] [address] [address] CONSULTATION Name: ANTONIO SPARKS Room #: 514-P ADM IN M.R.#: [id number] Admission: 02/14/17 Attend Phys: Ben Hodgson MD Discharge: Date of : 30 Report #: [id number] NEUROLOGIC: No history of syncope or near syncopal episodes. SKIN AND INTEGUMENT: No history of abnormal lesions or moles. PSYCHIATRIC: No history of anxiety or depression. PHYSICAL EXAMINATION: VITAL SIGNS: Temperature 98.1, pulse 93, respirations 18, blood pressure 108/72. GENERAL: Slightly confused, but alert and in no acute distress. HEENT: Normocephalic, atraumatic. Pupils equal, round, reactive to light. NECK: Supple, without lymphadenopathy. Trachea midline. HEART: Regular rate and rhythm. LUNGS: Clear to auscultation bilaterally. ABDOMEN: Soft, nontender, nondistended. GENITOURINARY: Normal external female genitalia. EXTREMITIES: No clubbing, cyanosis or edema. NEUROLOGIC: Cranial nerves 2-12 are grossly intact. PSYCHIATRIC: Normal mood and affect. SKIN AND INTEGUMENT: No abnormal lesions or moles. She has a Band-Aid to her right breast with very minimal ecchymosis. LABORATORY AND X-RAY DATA: CBC shows white blood cell count of 4.4 thousand, hemoglobin 11.2, platelets 193,000. Creatinine is 0.7. Biopsy pathology was consistent with infiltrating lobular carcinoma grade 1 measuring 1.3 cm in greatest dimension. ASSESSMENT AND PLAN: An 86-year-old female with a lengthy past medical history who has recently been found to have a right breast mass that is biopsy proven infiltrating lobular carcinoma. At this time, the patient should continue aggressive efforts towards inpatient rehabilitative efforts and ultimately we will ask hematology/oncology as well as possibly even radiation oncology to evaluate for her right breast cancer. Dr. Camarena will discuss her at the multidisciplinary breast conference and a definitive treatment course will be mapped out for her given her advanced age with multiple ongoing medical issues. We sincerely appreciate this consult and will follow along and leave any further recommendations in the patient's chart as appropriate. <ELECTRONICALLY SIGNED> By: Marylin Phillips MD, FACS 02/17/17 [id number] Marylin Phillips MD, FACS /nt
--- NOTE | ~2017-02-14 | EEG ---
[facility] [place] [address] ELECTROENCEPHALOGRAM Name: ANTONIO SPARKS Room #: 514-P ADM IN M.R.#: [id number] Admission: 02/14/17 Attend Phys: Ben Hodgson MD Discharge: Date of : 30 Report #: [id number] THIS REPORT FOR: //name// CC: Ben Hodgson [facility] physician/PCP DATE OF SERVICE: 02/18/2017 DATE OF EE02/18/2017 This patient is being evaluated for altered mental status. EEG was done by placing the electrodes by standard 10-20 system of electrode placement. Both referential and sequential montages were used for recording. Background activity in this patient's EEG is about 10 Hz and 30 microvolt. This patient became drowsy and that is associated with bilateral slowing and vertex sharp waves and sleep spindles. Photic stimulation was carried out in this patient and was unremarkable. Throughout the record, no active epileptiform activity was noticed. IMPRESSION: This patient's EEG is intermixed with mild theta range slowing on both sides. ____ is a nonspecific abnormality, which can occur with encephalopathy, effect of psychotropic medication, dementia, etc. Clinical correlation is recommended. Thank you very much for this referral. By: [id number] Roverto Huff MD /nt
[2017-02-14 16:00] VITALS: BP 109/57
[2017-02-14 18:20] VITALS: BP 120/69
[2017-02-15 03:11] VITALS: BP 108/72
[2017-02-15 03:18] LABS: HEMATOCRIT 32.7 % (37.0-47.0); HEMOGLOBIN 11.2 gm/dL (12.0-15.0); MCH 31.8 pg (26.0-34.0); MCHC 34.2 g/dL (28.0-37.0); MCV 92.9 fL (80.0-100.0); RBC 3.52 mil/uL (4.20-5.00); WBC 4.4 thou/uL (4.0-11.0)
[2017-02-15 03:29] LABS: CALCIUM 8.3 mg/dL (8.5-10.1); CREATININE 0.7 mg/dL (0.6-1.0); POTASSIUM 4.3 mmol/L (3.5-5.1)
[2017-02-15 19:05] VITALS: BP 70/44
[2017-02-16 05:54] VITALS: BP 87/55
[2017-02-16 16:00] VITALS: BP 81/56
[2017-02-17 06:00] VITALS: BP 125/71
[2017-02-17 16:21] VITALS: BP 124/44
[2017-02-18 04:51] VITALS: BP 106/58
[2017-02-18 16:00] VITALS: BP 105/56
[2017-02-18 20:20] VITALS: BP 102/67
[2017-02-19 03:09] LABS: FREE T4 0.99 ng/dL (0.82-1.77)
[2017-02-19 05:12] LABS: GLYCOHEMOGLOBIN (HGB A1C) 5.7 % (4.8-5.6)
[2017-02-19 05:30] VITALS: BP 108/70
[2017-02-19 16:00] VITALS: BP 103/54
[2017-02-20 06:03] VITALS: BP 122/77
[2017-02-20 13:15] LABS: ALPHA TOCOPHEROL 11.6 mg/L (6.5-21.5)
[2017-02-20 15:44] VITALS: BP 119/68; BP 134/67
[2017-02-21 06:32] VITALS: BP 119/77
[2017-02-21] MEDS ORDERED: ARICEPT 5 MG TAB5 MG PO (08:36)
[2017-02-21] MEDS ORDERED: REQUIP 0.25 M0.25 MG PO (08:37)
[2017-02-21] MEDS ORDERED: PRIMIDONE50 MG PO (08:37)
[2017-02-21 10:38] VITALS: BP 119/77
[2017-02-21] MEDS ORDERED: CARVEDILOL6.25 MG PO (14:39)
[2017-02-21] MEDS ORDERED: CARBIDOPA-LEVO1 EA11 PO (14:39)
[2017-02-21 15:29] VITALS: BP 134/69
== END 2017-02-21 17:11 | disposition home health service (06) | DRG 56 ==
PROVIDERS: Physical Medicine & Rehabilitation; Psychiatry & Neurology Neurology
DX: G20 Parkinson's disease (principal); J18.9 Pneumonia, unspecified organism; I50.21 Acute systolic (congestive) heart failure; J96.00 Acute respiratory failure, unspecified whether with hypoxia or hypercapnia; K56.7 Ileus, unspecified; J90 Pleural effusion, not elsewhere classified; F02.80 Dementia in other diseases classified elsewhere, unspecified severity, without behavioral disturbance, psychotic disturbance, mood disturbance, and anxiety; I50.9 Heart failure, unspecified; I48.91 Unspecified atrial fibrillation; F10.10 Alcohol abuse, uncomplicated; F17.210 Nicotine dependence, cigarettes, uncomplicated; R53.81 Other malaise; K52.9 Noninfective gastroenteritis and colitis, unspecified; I25.5 Ischemic cardiomyopathy; C50.911 Malignant neoplasm of unspecified site of right female breast
CPT/HCPCS: 10112

== ENCOUNTER 2017-02-23 17:59 | Emergency (ER) | payer OTHER ==
[~2017-02-23] VITALS: Ht 149.9 cm; Wt 36.7 kg
--- NOTE | ~2017-02-23 | EKG ---
[address] [place] [address] ELECTROCARDIOGRAM REPORT Name: ANTONIO SPARKS [id number] Admission: 02/23/17 Attend Phys: Discharge: 02/23/17 Date of : 30 Report #: [id number] THIS REPORT FOR: //name// [facility] ED Test Date: 2017-02-23 Test Time: 18:14:48 Pat Name: ANTONIO SPARKS Department: Room: Gender: F Program/Music Director: BELIA : 1930 Requested By: Victor Manuel Barnett Order Number: [id number] MD: Aguilar Petresen Measurements Intervals [place] Rate: 92 P: 77 NE: 194 QRS: -112 QRSD: 136 T: 58 QT: 423 QTc: 524 Interpretive Statements Sinus rhythm Atrial premature complex Probable left atrial enlargement RBBB and LAFB Nonspecific T abnormalities, lateral leads Compared to ECG 02/06/2017 14:45:02 Atrial premature complex(es) now present Electronically Signed On 02-24-2017 10:59:59 CDT by Aguilar Petersen [email or web address] <ELECTRONICALLY SIGNED> By: Aguilar Petersen MD, [facility] 02/24/17 1059 [id number] Aguilar Petersen MD, [facility] /EPI
[~2017-02-23 17:59] MED LIST changes: +ARICEPT 5 MG TAB5 MG PO; +PRIMIDONE50 MG PO; +REQUIP 0.25 M0.25 MG PO
[2017-02-23] MEDS ORDERED: ACETAMINOPHEN325 M1 PO (19:26)
[2017-02-23] MEDS ORDERED: PRIMIDONE50 MG PO (19:26)
[2017-02-23] MEDS ORDERED: CARBIDOPA-LEVO1 EA11 PO (19:26)
[2017-02-23] MEDS ORDERED: LISINOPRIL5 MG PO (19:26)
[2017-02-23] MEDS ORDERED: COLACE100 MG PO (19:26)
[2017-02-23] MEDS ORDERED: CARVEDILOL6.25 MG PO (19:26)
[2017-02-23] MEDS ORDERED: ALBUTEROL2.5 MG/0.5 INH (19:26)
[2017-02-23] MEDS ORDERED: ARICEPT 5 MG TAB5 MG PO (19:26)
[2017-02-23] MEDS ORDERED: NEXIUM40 MG PO (19:26)
[2017-02-23] MEDS ORDERED: MIRALAX17 GM PO (19:26)
[2017-02-23] MEDS ORDERED: REQUIP 0.25 M0.25 MG PO (19:26)
== END 2017-02-23 19:27 | disposition home or self-care (01) ==
LOC: ER 17:59
DX: M79.89 Other specified soft tissue disorders (principal); I50.9 Heart failure, unspecified; I25.5 Ischemic cardiomyopathy; F03.90 Unspecified dementia, unspecified severity, without behavioral disturbance, psychotic disturbance, mood disturbance, and anxiety; I48.91 Unspecified atrial fibrillation; F10.99 Alcohol use, unspecified with unspecified alcohol-induced disorder

== ENCOUNTER 2017-02-24 20:59 | Emergency (ER) | payer OTHER ==
[~2017-02-24] VITALS: Ht 149.9 cm; Wt 36.7 kg
== END 2017-02-24 22:55 | disposition home or self-care (01) ==
LOC: ER 20:59
DX: R60.9 Edema, unspecified (principal); I50.9 Heart failure, unspecified; F22 Delusional disorders; I48.91 Unspecified atrial fibrillation; G20 Parkinson's disease; F02.80 Dementia in other diseases classified elsewhere, unspecified severity, without behavioral disturbance, psychotic disturbance, mood disturbance, and anxiety; F10.99 Alcohol use, unspecified with unspecified alcohol-induced disorder; Z91.14 Patient's other noncompliance with medication regimen

== ENCOUNTER 2017-04-08 11:39 | Emergency (ER) | payer OTHER ==
[~2017-04-08] VITALS: Ht 142.2 cm; Wt 33.1 kg
[~2017-04-08 11:39] MED LIST changes: +ALBUTEROL2.5 MG/31 INH; +COREG6.25 MG PO; +HYDROCODONE-AP1 EAC6 PO; +LISINOPRIL2.5 MG PO
[2017-04-08] MEDS ORDERED: ATIVAN1 MG PO (12:29)
[2017-04-08 12:40] LABS: HEMATOCRIT 30.7 % (37.0-47.0); HEMOGLOBIN 10.6 gm/dL (12.0-15.0); MANUAL DIFF YES; MCH 32.3 pg (26.0-34.0); MCHC 34.6 g/dL (28.0-37.0); MCV 93.4 fL (80.0-100.0); PLATELET COUNT 196 thou/uL (150-400); RBC 3.29 mil/uL (4.20-5.00); RDW 15.1 % (10.5-14.5); WBC 3.7 thou/uL (4.0-11.0)
[2017-04-08 12:53] LABS: CALCIUM 8.5 mg/dL (8.5-10.1); CREATININE 0.7 mg/dL (0.6-1.0); POTASSIUM 3.8 mmol/L (3.5-5.1)
[2017-04-08 13:03] LABS: TOTAL CELL COUNT 100
[2017-04-08 13:04] LABS: ALBUMIN 3.2 g/dL (3.4-5.0); TOTAL BILIRUBIN 0.4 mg/dL (<0.1-1.0); TOTAL PROTEIN 6.9 g/dL (6.4-8.2)
[2017-04-08] MEDS ORDERED: MYSOLINE50 MG PO (13:17)
[2017-04-08] MEDS ORDERED: COLACE100 MG PO (13:17)
[2017-04-08] MEDS ORDERED: LISINOPRIL2.5 MG PO (13:17)
[2017-04-08] MEDS ORDERED: COREG6.25 MG PO (13:17)
[2017-04-08] MEDS ORDERED: ARICEPT 5 MG TAB5 MG PO (13:17)
== END 2017-04-08 14:40 | disposition home or self-care (01) ==
LOC: ER 11:39
PROVIDERS: Physician Assistant
DX: Z76.0 Encounter for issue of repeat prescription (principal); R60.0 Localized edema; I48.91 Unspecified atrial fibrillation; G20 Parkinson's disease; F02.80 Dementia in other diseases classified elsewhere, unspecified severity, without behavioral disturbance, psychotic disturbance, mood disturbance, and anxiety; I50.9 Heart failure, unspecified; F22 Delusional disorders; F10.99 Alcohol use, unspecified with unspecified alcohol-induced disorder